=== PATIENT | female | born 1985 ===

== ENCOUNTER → 2024-09-19 | Outpatient (CLI) | payer OTHER ==
[2024-09-19 16:33] LABS: Source, Urine Voided
[2024-09-19 17:44] LABS: Bilirubin, Urine Neg (Neg); Color, Urine Yellow (P-Yellow); Glucose Qualitative, Urine Neg (Neg); Ketones, Urine Neg (Neg); Leukocyte Esterase, Urine Neg (Neg); Protein, Urine 1+ (Neg); Specific Gravity, Urine 1.010 (1.003-1.022); Urobilinogen, Urine NORM (Normal)
[2024-09-19 18:05] LABS: Red Blood Cells, Urine 0-2 /hpf (0-2)
== END | disposition home or self-care (01) ==
LOC: LAB 16:30 → LAB SHORT 16:30
PROVIDERS: Urology
DX: N30.00 Acute cystitis without hematuria (principal); N30.20 Other chronic cystitis without hematuria
CPT/HCPCS: 81001; 87077; 87086; 87186

== ENCOUNTER → 2024-11-16 | Outpatient (CLI) | payer OTHER ==
[2024-11-16 13:12] LABS: Source, Urine Voided
[2024-11-16 14:11] LABS: Bilirubin, Urine Neg (Neg); Glucose Qualitative, Urine Neg (Neg); Ketones, Urine Neg (Neg); Leukocyte Esterase, Urine Neg (Neg); Protein, Urine Neg (Neg); Specific Gravity, Urine 1.005 (1.003-1.022); Urobilinogen, Urine NORM (Normal)
[2024-11-16 14:46] LABS: Color, Urine Pale Yellow (P-Yellow)
[2024-11-16 14:47] LABS: Red Blood Cells, Urine 0-2 /hpf (0-2); White Blood Cells, Urine 0-2 /hpf (0-5)
== END ==
LOC: LAB 13:10 → LAB SHORT 13:10
PROVIDERS: Urology
DX: R30.0 Dysuria (principal)
CPT/HCPCS: 81001; 87077; 87086; 87186